=== PATIENT | female | born 1985 | race Caucasian/White ===

== ENCOUNTER 2024-12-30 11:34 | Emergency (ER) | payer MEDICAID ==
[~2024-12-30] VITALS: Ht 165.1 cm; Wt 53.8 kg
[~2024-12-30 11:34] MED LIST: AMPH10CA7 PO; DULO-31 PO; DULR RC
[2024-12-30 11:38] VITALS: BP 134/92; PULSE 98; RESP 15; TEMP 97.7; O2SAT 100
--- NOTE | 2024-12-30 12:41 | Physician Documentation ---
History of Present Illness ~ Chief Complaint: Laceration Stated Complaint: FINGER LAC Time Seen by MD: 11:41 Primary Medical Doctor: [facility] Source: patient Mode of Arrival: POV Exam Limitations: no limitations HPI 39 Year old female Patient was pulling a drain from a seeing and cut the tip of her she cleaned it and dressed it home but is in the emergency department because she was unable to get the dressing off without a lot of pain Tetanus Within 5 Years: No Medication Reconciliation Allergies: Coded Allergies: Penicillins (Verified Allergy, Severe, 09/08/11) codeine (Verified Allergy, Severe, 09/08/11) Levofloxacin (Verified Allergy, Intermediate, 09/08/11) Scheduled Amphet Asp/Amphet/D-Amphet XR* (Adderall XR*), 10 MG PO DAILY, (Reported) Bisacodyl Supp* (Dulcolax Supp*), 1 SUPP RC DAILY Duloxetine Hcl* (Cymbalta*), 30 MG PO DAILY, (Reported) Duloxetine Hcl* (Cymbalta*), 60 MG PO DAILY, (Reported) Past Medical History Past Medical History: No Pertinent History, Asthma, Depression Past Surgical History: tonsillectomy Alcohol Use: None Drug Use: none Lives with: Spouse, Family Lives In: Home Review of Systems All Other Systems at this time: Reviewed and Negative Integumentary: Reports: see HPI Physical Exam Vital Signs: RN Vital Signs have been reviewed: Yes, Temperature: 97.7, Source: Temporal, Heart Rate: 98, Respiratory Rate: 15, BP: 134/92, Pulse Oximetry: 100, Weight: 53.750 Physical Exam General: Alert, no apparent distress. Neck: Full range of motion. Respiratory: Lungs clear, no respiratory distress. Chest: No accessory muscle use. Cardiovascular: Regular rate and rhythm, no murmurs. Extremities: Normal range of motion, no deformity. Small avulsion laceration 40s to right thumb pad no signs of infection no bleeding Neurologic: Oriented x4. Psychiatric: Normal mood and affect. Skin: Normal color, warm and dry. No edema, no ecchymosis. Progress Results/Orders Results/Orders Vital Signs 12/30/24 11:38 Temp 97.7 Pulse 98 Resp 15 B/P (MAP) 134/92 Pulse Ox 100 Medical Decision Making Findings Patient required emergent Band-Aid pulling on some laceration. No signs of infection small superficial avulsion of thumb pad. Wound cleaned nonadhesive dressing placed Departure Time of Disposition: 12:39 Disposition: 01 HOME / SELF CARE / HOMELESS Impression: Primary Impression: Change of dressing Condition: Stable Discharge Instructions: Wound Care, Adult Additional Instructions: monitor wound for infection change dressing daily Referrals: NO PRIMARY CARE PROVIDER (PCP) Education Educated: Patient Educated regarding: diagnosis, treatment, need for follow up Signature Scribe Signature: No scribe Attestation: The note accurately reflects work and decisions made by me.Angelica GUIDRY 12/30/24 12:40 ANGELICA WYNNE NP Dec 30, 2024 12:41
== END 2024-12-30 12:52 | disposition home or self-care (01) ==
LOC: ER 11:35
DX: S61.011A Laceration without foreign body of right thumb without damage to nail, initial encounter (principal); F32.A Depression, unspecified; Z88.5 Allergy status to narcotic agent; Z88.0 Allergy status to penicillin; Z88.1 Allergy status to other antibiotic agents; Z79.899 Other long term (current) drug therapy; X50.9XXA Other and unspecified overexertion or strenuous movements or postures, initial encounter; Y93.89 Activity, other specified; Y92.89 Other specified places as the place of occurrence of the external cause; Y99.8 Other external cause status
CPT/HCPCS: 99282; A6222; J7030; 99281; A6258